=== PATIENT | male | born 2000 ===

== ENCOUNTER 2022-06-07 02:32 | Emergency (ER) | payer OTHER ==
[~2022-06-07] VITALS: Ht 160 cm; Wt 69.5 kg
[2022-06-07 02:34] VITALS: TEMP 98.3
[2022-06-07 07:36] VITALS: BP 116/71; PULSE 88
== END 2022-06-07 07:46 | disposition home or self-care (01) ==
LOC: COL.ER 02:32
DX: F10.129 Alcohol abuse with intoxication, unspecified (principal); F17.290 Nicotine dependence, other tobacco product, uncomplicated; Z23 Encounter for immunization; Y09 Assault by unspecified means
CPT/HCPCS: J2405

== ENCOUNTER 2022-12-25 06:13 | Emergency (ER) | payer OTHER ==
[~2022-12-25] VITALS: Ht 160 cm; Wt 59.1 kg
[2022-12-25 06:19] VITALS: BP 126/83; TEMP 98.1
[2022-12-25 06:53] LABS: BASO % 0.3 % (0.0-2.0); EOS # 0.3 K/mm3 (0.0-0.7); EOS % 3.2 % (0.0-4.0); GRAN # 5.3 K/mm3 (1.4-6.5); GRAN % 67.3 % (42.2-75.2); HEMATOCRIT 48.2 % (42.0-52.0); HEMOGLOBIN 17.6 g/dl (13.5-18.0); LYMPH # 1.3 K/mm3 (1.2-3.4); MEAN CELL VOLUME 90 fl (80.0-100.0); MEAN CORPUSCULAR HEMOGLOBIN 33 pg (27-31); MEAN CORPUSCULAR HGB CONC 37 g/dl (33.0-37.0); MEAN PLATELET VOLUME 10.6 fl (7.4-10.4); MONO % 12.6 % (1.7-9.3); PLATELET COUNT 195 K/mm3 (130-400); RED BLOOD COUNT 5.35 M/mm3 (4.20-5.60); REDCELL DISTRIBUTION WIDTH-CV 12.2 % (11.5-14.5)
[2022-12-25 07:15] LABS: ALBUMIN 4.5 gm/dL (3.5-5.0); BILIRUBIN,TOTAL 1.7 mg/dL (0.2-1.2); CALCIUM 9.3 mg/dL (8.4-10.2); CREATININE, serum 0.84 mg/dL (0.72-1.25); POTASSIUM 3.8 mmol/L (3.5-4.5)
[2022-12-25] MEDS ORDERED: ZOFRAN ODT4 MG PO (07:35)
[2022-12-25 07:42] VITALS: PULSE 75
== END 2022-12-25 07:43 | disposition home or self-care (01) ==
LOC: COL.ER 06:13
PROVIDERS: Personal Emergency Response Attendant
DX: R19.7 Diarrhea, unspecified (principal); R10.9 Unspecified abdominal pain; F17.290 Nicotine dependence, other tobacco product, uncomplicated
CPT/HCPCS: J7030

== ENCOUNTER 2023-02-18 14:43 | Emergency (ER) | payer SELFPAY ==
[~2023-02-18] VITALS: Ht 162.6 cm; Wt 65.9 kg
[~2023-02-18 14:43] MED LIST: ZOFRAN ODT4 MG PO
[2023-02-18 15:22] VITALS: BP 124/70; PULSE 87; TEMP 98.1
== END 2023-02-18 15:22 | disposition home or self-care (01) ==
LOC: COL.ER 14:43
DX: S91.331A Puncture wound without foreign body, right foot, initial encounter (principal); F17.210 Nicotine dependence, cigarettes, uncomplicated; Z23 Encounter for immunization; W45.0XXA Nail entering through skin, initial encounter; Y92.59 Other trade areas as the place of occurrence of the external cause; Y99.0 Civilian activity done for income or pay